=== PATIENT | male | born 1985 | race Caucasian/White ===

== ENCOUNTER 2016-11-07 06:58 | Emergency (ER) | payer SELFPAY ==
[2016-11-07 07:08] VITALS: BP 143/91
--- NOTE | 2016-11-07 07:33 | EDM.PDOC ---
ED HPI EYE COMPLAINT - General Chief Complaint: Eye Problems Stated Complaint: EYE IRRITATION Time Seen by Provider: 11/07/16 07:20 Source: Reports: Patient History Limitations: Reports: No limitations - History of Present Illness INITIAL COMMENTS - FREE TEXT/NARRATIVE: For the past couple of days the patient has had irritation and pain in his left eye. 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 The pain is keeping him up at night. He has some blurred vision. He does not think he got any FB in his left eye. 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: welding arc Associated Symptoms (Eye): Reports: pain, burning - Related Data Allergies/ADRs: Allergies No Known Allergies Allergy (Verified 11/07/16 07:05) Home Meds: Ambulatory Orders Medication Instructions Recorded Confirmed Ciprofloxacin [IJD: Ciloxan 0.3% 1 drop EYELF .EVERY 4 HOURS #5 ml 11/07/16 Ophth Soln] Hydrocodone/Acetaminophen 1 - 2 each PO Q6HR PRN #20 tablet 11/07/16 [Hydrocodon-Acetaminophen 5-325] ED ROS GENERAL - Review of Systems Review Of Systems: See Below Constitutional: Reports: no symptoms HEENT: Reports: Eye pain Respiratory: Reports: no symptoms Cardiovascular: Reports: No symptoms Endocrine: Reports: no symptoms GI/Abdominal: Reports: No symptoms : Reports: no symptoms Musculoskeletal: Reports: no symptoms ED EXAM GENERAL W FULL EYE - Physical Exam Exam: See Below Exam Limited By: No limitations General Appearance: alert, no apparent distress Eye Exam: left eye: foreign body (Metal), bilateral eye: EOMI, PERRL Visual acuity (R) 20/: 20 Visual acuity (L) 20/: 30 Eyelids: left: lid everted for exam, bilateral: normal appearance Conjunctiva & Sclera: left: injected (Slight) Cornea Exam: left: foreign body (Metal with a rust ring) Extraocular Movements: bilateral: intact Pupillary Size: bilateral: 4 mm Pupillary Reaction: bilateral: brisk Anterior Chamber: left: normal appearance Ears: normal external exam Nose: normal inspection Head: atraumatic, normocephalic Respiratory/Chest: no respiratory distress ED EYE w/ Add Procedure - Eye Procedure Alcaine Drops Administered: Yes Eye FB Removal: other (Eye spud) Eye Irrigated w/ Saline (ccs): 10 Progress: I used the eye drill to remove some of the rust ring. Course - Vital Signs Last Recorded V/S: Last Vital Signs Temp 97.5 F 11/07/16 07:05 Pulse 72 11/07/16 07:05 Resp 16 11/07/16 07:05 BP 143/91 H 11/07/16 07:05 Pulse Ox 100 11/07/16 07:05 - Re-Assessments/Exams Free Text/Narrative Re-Assessment/Exam: 11/07/16 07:33 I removed the FB and used the drill to remove some of the rust ring. I will get him on an antibiotic drop and some hydrocodone for pain. Departure - Departure Time of Disposition: 07:35 Disposition: Home, Self-Care 01 Condition: good Clinical Impression: Foreign body of left eye Qualifiers: Encounter type: initial encounter Qualified Code(s): T15.92XA - Foreign body on external eye, part unspecified, left eye, initial encounter Prescriptions: Hydrocodone/Acetaminophen [Hydrocodon-Acetaminophen 5-325] 1 - 2 each PO Q6HR PRN #20 tablet PRN Reason: Pain Ciprofloxacin [IJD: Ciloxan 0.3% Ophth Soln] 1 drop EYELF .EVERY 4 HOURS #5 ml Additional Instructions: Use the eye drops 1 drop every 4 hours while awake for 1 week. Take the hydrocodone as needed for pain. Please return if you are worse or follow up with an pizza baker here in town.
== END 2016-11-07 07:51 | disposition home or self-care (01) ==
LOC: JD.ED 06:58
DX: T15.02XA Foreign body in cornea, left eye, initial encounter (principal); Y93.89 Activity, other specified
CPT/HCPCS: 65220; 65222; 99283-25

== ENCOUNTER 2017-07-28 08:49 | Emergency (ER) | payer BC ==
[2017-07-28 09:03] VITALS: BP 175/98
[2017-07-28] MEDS ORDERED: Diphtheria,Pertussis(Acell),Tetanus Vaccine 0.5 ML SDV IM ONE (09:15)
[2017-07-28] MEDS ORDERED: Acetaminophen/oxyCODONE 325-5 MG Tab PO ONE (09:15)
[2017-07-28] MEDS ORDERED: Ibuprofen 800 MG Tab PO ONE (09:15)
[2017-07-28] MEDS ORDERED: Amoxicillin/Clavulanate K 875-125 MG Tab PO ONE (09:15)
--- NOTE | 2017-07-28 09:24 | EDM.PDOC ---
ED HPI GENERAL MEDICAL PROBLEM - General Chief Complaint: Bite:Animal, Insect Stated Complaint: RIGHT HAND INJURY Time Seen by Provider: 07/28/17 09:01 Source of Information: Reports: Patient History Limitations: Reports: No Limitations - History of Present Illness INITIAL COMMENTS - FREE TEXT/NARRATIVE: The patient is a 31-year-old male with a chief complaint of right hand dog bite. The patient was in a truck with a great Lc dog belongs to his girlfriend. He states the dog was mildly agitated and he was trying to get the dog out of his truck and the dog bit him on the right hand. Patient states it was a provoked bite. Dog is been behaving normally otherwise and is up-to-date on vaccines. Patient complains of a wound to the right hand. Moderate to severe pain. Mild bleeding. No numbness or weakness of the fingers or thumb. No additional complaint. Unsure of when his last tetanus vaccine occurred. Right Hand Pain Score (Numeric/FACES): 8 - Related Data Allergies Allergy/AdvReac Type Severity Reaction Status Date / Time No Known Allergies Allergy Verified 07/28/17 09:03 Home Meds: Home Meds Amoxicillin/Potassium Clav [Augmentin 875-125 Tablet] 1 each PO BID #14 tablet 07/28/17 [Rx] Ibuprofen 800 mg PO TID PRN #30 tablet 07/28/17 [Rx] oxyCODONE HCl/Acetaminophen [Percocet 5-325 mg Tablet] 1 each PO QID PRN #12 tablet 07/28/17 [Rx] Past Medical History - Past Health History Medical/Surgical History: Denies Medical/Surgical History HEENT History: Reports: None Cardiovascular History: Reports: None Respiratory History: Reports: None Gastrointestinal History: Reports: None Genitourinary History: Reports: None Musculoskeletal History: Reports: None Neurological History: Reports: None Psychiatric History: Reports: None Endocrine/Metabolic History: Reports: None Dermatologic History: Reports: None Social & Family History - Tobacco Use Smoking Status *Q: Unknown Ever Smoked Second Hand Smoke Exposure: No ED ROS GENERAL - Review of Systems Review Of Systems: See Below Constitutional: Reports: No Symptoms, Fever Musculoskeletal: Reports: Arm Pain Skin: Reports: Wound Neurological: Denies: Numbness, Weakness ED EXAM, ANIMAL BITE - Physical Exam Exam: See Below Exam Limited By: No Limitations General Appearance: Alert, WD/WN, Mild Distress Eye Exam: Bilateral Eye: Normal Inspection Ears: Normal External Exam Nose: Normal Inspection Throat/Mouth: Normal Inspection, Normal Voice, No Airway Compromise Head: Atraumatic, Normocephalic Neck: Normal Inspection Respiratory/Chest: No Respiratory Distress Cardiovascular: Normal Peripheral Pulses Extremities: Other (RUE: multiple wounds on R hand, including 3 deep appearing puncture wounds to dorsal surface overlying area between distal index and middle finger metacarpals. Moderate soft-tissue swelling. Mild bleeding. No visible FB. No exposed bone or tendon. Small puncture wound on palmar surface at the base of the 3rd metacarpal. Small puncture wound on R middle finger, mid proximal segment. Distal motor/sensation/perfusion intact. ) Psychiatric: Normal Affect, Normal Mood Skin Exam: Warm/Dry, DRY, I, Normal Color, NR Course - Vital Signs Last Recorded V/S: Last Vital Signs Temp 36.9 C 07/28/17 09:00 Pulse 101 H 07/28/17 09:00 Resp 18 07/28/17 09:00 BP 175/98 H 07/28/17 09:00 Pulse Ox 100 07/28/17 09:00 - Orders/Labs/Meds Orders: Active Orders 24 hr Category Date Time Status Vaccines to be Administered [RC] PER UNIT ROUTINE Care 07/28/17 09:16 Active Hand Comp Min 3V Rt [CR] Stat Exams 07/28/17 09:20 Taken Meds: Medications Discontinued Medications Generic Name Dose Route Start Last Admin Trade Name Freq PRN Reason Stop Dose Admin Amoxicillin/Clavulanate Potassium 1 tab 07/28/17 09:15 Augmentin 875 Mg/125 Mg PO 07/28/17 09:16 ONETIME ONE Bacitracin 1 dose 07/28/17 09:40 Bacitracin Oint 1 Gm TOP 07/28/17 09:41 ONETIME ONE Diphtheria/Tetanus/Acell Pertussis 0.5 ml 07/28/17 09:15 Adacel IM 07/28/17 09:16 .ONCE ONE Ibuprofen 800 mg 07/28/17 09:15 Motrin PO 07/28/17 09:16 ONETIME ONE Oxycodone/Acetaminophen 1 tab 07/28/17 09:15 Percocet 325-5 Mg PO 07/28/17 09:16 ONETIME ONE - Re-Assessments/Exams Free Text/Narrative Re-Assessment/Exam: 07/28/17 09:51 Hand x-ray shows no bony abnormality. Soft tissue swelling and wound visualized between index and middle metacarpals. Wound extensively irrigated in the emergency department. Patient was given prophylactic Augmentin. I counseled him at length regarding need for wound check in about 2 days and also risk of infection and need to monitor for symptoms of possible infection. No evidence of bony injury. The patient is neurovascularly intact. However given the depth of wounds and amount of soft tissue swelling encouraged him to follow up with orthopedics if his hand is not healing as expected this week. He will follow up at [facility] for a wound check this week. Departure - Departure Time of Disposition: 09:45 Disposition: Home, Self-Care 01 Clinical Impression: Puncture wound, hand Qualifiers: Encounter type: initial encounter Foreign body presence: without foreign body Laterality: right Qualified Code(s): S61.431A - Puncture wound without foreign body of right hand, initial encounter Dog bite Qualifiers: Encounter type: initial encounter Qualified Code(s): W54.0XXA - Bitten by dog, initial encounter - Discharge Information Prescriptions: Amoxicillin/Potassium Clav [Augmentin 875-125 Tablet] 1 each PO BID #14 tablet Ibuprofen 800 mg PO TID PRN #30 tablet PRN Reason: Pain oxyCODONE HCl/Acetaminophen [Percocet 5-325 mg Tablet] 1 each PO QID PRN #12 tablet PRN Reason: Pain Instructions: Animal Bite, [id number], Puncture Wound, [id number] Referrals: PCP,None [Primary Care Provider] - Forms: ED Department Discharge Additional Instructions: Keep wound clean and dry. Take Augmentin as prescribed to help prevent infection. Follow-up with the walk-in clinic or at your primary care doctor for a wound check in about 2 days. You may call [phone] to schedule with the walk- in clinic. Follow-up sooner or return to the emergency department for any evidence of infection, including worsening pain, swelling, redness, or especially pus under the wound. Take ibuprofen as needed for pain. Take Percocet as needed for severe pain. No driving or operating heavy machinery while taking Percocet as this medication may make you drowsy or confused. Follow -up with orthopedics if you have any residual pain or weakness in your hand within 1-2 weeks. - My Orders Last 24 Hours: My Active Orders 07/28/17 09:16 Vaccines to be Administered [RC] PER UNIT ROUTINE 07/28/17 09:20 Hand Comp Min 3V Rt [CR] Stat - Assessment/Plan Last 24 Hours: My Active Orders 07/28/17 09:16 Vaccines to be Administered [RC] PER UNIT ROUTINE 07/28/17 09:20 Hand Comp Min 3V Rt [CR] Stat
[2017-07-28] MEDS ORDERED: Bacitracin Oint 1 GM U/D Packet TOP ONE (09:40)
--- NOTE | 2017-07-30 11:40 | CR ---
Right hand: Four views of the right hand were obtained. Comparison: No prior hand exam. Soft tissue swelling is identified with soft tissue air. Joint spaces are preserved. No acute fracture, dislocation or other bony abnormality is seen. No opaque foreign object is seen. Impression: 1. Soft tissue swelling and soft tissue air. 2. No acute bony abnormality is identified on right and exam. Diagnostic code #2
== END 2017-07-28 10:14 | disposition home or self-care (01) ==
LOC: JD.ED 08:49
DX: S61.431A Puncture wound without foreign body of right hand, initial encounter (principal); W54.0XXA Bitten by dog, initial encounter; Z23 Encounter for immunization
CPT/HCPCS: 73130; 90471; 90715; 99283; A9270

== ENCOUNTER 2017-07-30 16:35 | Emergency (ER) | payer BC ==
[2017-07-30 16:47] VITALS: BP 146/91
--- NOTE | 2017-07-30 17:27 | EDM.PDOC ---
ED HPI GENERAL MEDICAL PROBLEM - General Chief Complaint: Wound Recheck Stated Complaint: FLUIDS PER [facility] Time Seen by Provider: 07/30/17 16:55 Source of Information: Reports: Patient, Old Records (Saturday ER visit) History Limitations: Reports: No Limitations - History of Present Illness INITIAL COMMENTS - FREE TEXT/NARRATIVE: 31-year-old male presents for evaluation and treatment of a dog bite to the right hand. Patient was bit by his girlfriend sukh Platt on Saturday. It sounds like it was provoked. He has puncture wounds to the dorsal and ventral right hand. He was seen at the ER on Saturday. X rays were done. No acute fractures were identified. He was started on secondary course of Augmentin and given something for pain. Chills and diaphoresis last night. Unsure of fever - did not take temp. No nausea or vomiting. Today the patient presented to the [facility]. The provider there had concerns about red streaking up his arm and the amount of swelling to the right hand. She sent him to us for further management and care. Patient reports that he did have some chills and felt feverish last night. No nausea or vomiting. reportedly the dog's immunizations are up-to-date. He reports that his tetanus was updated on Saturday. Right Hand Pain Score (Numeric/FACES): 2 - Related Data Allergies Allergy/AdvReac Type Severity Reaction Status Date / Time No Known Allergies Allergy Verified 07/30/17 16:47 Home Meds: Home Meds Amoxicillin/Potassium Clav [Augmentin 875-125 Tablet] 1 each PO BID #14 tablet 07/28/17 [Rx] Ibuprofen 800 mg PO TID PRN #30 tablet 07/28/17 [Rx] oxyCODONE HCl/Acetaminophen [Percocet 5-325 mg Tablet] 1 each PO QID PRN #12 tablet 07/28/17 [Rx] Acetaminophen/oxyCODONE [Percocet 325-5 MG] 1 tab PO Q6H PRN #5 tablet 07/30/17 [Rx] Amoxicillin/Potassium Clav [Augmentin 875-125 Tablet] 1 each PO BID #6 tablet [Rx] Past Medical History - Past Health History Medical/Surgical History: Denies Medical/Surgical History HEENT History: Reports: None Cardiovascular History: Reports: None Respiratory History: Reports: None Gastrointestinal History: Reports: None Genitourinary History: Reports: None Musculoskeletal History: Reports: None Neurological History: Reports: None Psychiatric History: Reports: None Endocrine/Metabolic History: Reports: None Dermatologic History: Reports: None Social & Family History - Tobacco Use Smoking Status *Q: Current Every Day Smoker Years of Tobacco use: 18 Packs/Tins Daily: 0.5 Second Hand Smoke Exposure: No - Caffeine Use Caffeine Use: Reports: Coffee - Recreational Drug Use Recreational Drug Use: No ED ROS GENERAL - Review of Systems Review Of Systems: See Below Constitutional: Reports: Chills (last night), Diaphoresis (last night). Denies : Fever (unsure) GI/Abdominal: Denies: Nausea Musculoskeletal: Reports: Hand Pain (right), Joint Swelling (swelling to the right hand ) Skin: Reports: Erythema (small amount of erythema to the right proixmal hand and wrsit; no lymphangitis present), Wound (2 wounds to the dorsal right hand and 1 to the ventral left hand) ED EXAM, SKIN/RASH Exam: See Below Exam Limited By: No Limitations General Appearance: Alert, WD/WN, No Apparent Distress Respiratory/Chest: No Respiratory Distress Cardiovascular: Normal Peripheral Pulses, Regular Rate, Rhythm Peripheral Pulses: 2+: Radial (R) Extremities: Normal Capillary Refill, Joint Swelling (swelling to the right hand ) Neurological: Alert, Normal Cognition Psychiatric: Normal Affect, Normal Mood Skin: Warm, Dry, Normal Color, Erythema (slight erythemat to the ventral right hand and wrist), Other (1.5cm puncture wound to the ventral right hand; 2 wound to the dorsal right hand 1cm in length and 0.5cm in length; no surrounding erythema, no prurlent drainage). No: Increased Warmth Location, Skin: Upper Extremity, Right Course - Vital Signs Last Recorded V/S: Last Vital Signs Temp 36.6 C 07/30/17 16:43 Pulse 99 07/30/17 16:43 Resp 16 07/30/17 16:43 BP 146/91 H 07/30/17 16:43 Pulse Ox 95 07/30/17 16:43 - Re-Assessments/Exams Free Text/Narrative Re-Assessment/Exam: 07/30/17 17:18 I feel the hand is healing well. No additional antibiotics needed at this time. I will extend him to a 10 day course and give him a few additional pain pills if needed. Patient works as a branch assistant. Not elevating the hand much. Encourage him to elevate the hand. Offered splint for immobilization to help with swelling and discomfort. Patient declined. States he would not wear it. Will discharge at this time. Discharge instructions as documented. Departure - Departure Time of Disposition: 17:22 Disposition: Home, Self-Care 01 Condition: Good Clinical Impression: Dog bite, Puncture wound, hand - Discharge Information Prescriptions: Acetaminophen/oxyCODONE [Percocet 325-5 MG] 1 tab PO Q6H PRN #5 tablet PRN Reason: Pain Amoxicillin/Potassium Clav [Augmentin 875-125 Tablet] 1 each PO BID #6 tablet Instructions: Animal Bite, [id number], Puncture Wound, [id number] Referrals: PCP,None [Primary Care Provider] - Forms: ED Department Discharge Additional Instructions: Ice the hand 3-4 times a day for 15-20 minutes. Elevate the hand as much as you able to. Try to elevate above the level of your heart. Continue taking the Augmentin. Take this for 10 days total. An additional prescription has been provided. Continue taking ibuprofen for pain. A 800 milligrams every 6 hours. For pain not relieved by ibuprofen, you may take Percocet 1-2 tabs every 4-[address] operate machinery within 12 hours of taking Percocet. Percocet can be habit-forming, recommended you take as few of these as needed to control your pain. Attempt to keep the hand as immobilized as possible. Follow-up with your primary care provider in 7-10 days for recheck. Please return to the ER if your symptoms change or worsen.
== END 2017-07-30 17:40 | disposition home or self-care (01) ==
LOC: JD.ED 16:35
DX: S61.451A Open bite of right hand, initial encounter (principal); S61.431A Puncture wound without foreign body of right hand, initial encounter; F17.210 Nicotine dependence, cigarettes, uncomplicated; W54.0XXA Bitten by dog, initial encounter
CPT/HCPCS: 99283

== ENCOUNTER 2020-05-06 19:13 | Emergency (ER) | payer BC, OTHER ==
[2020-05-06] MEDS ORDERED: Proparacaine 0.5% Ophth Soln 15 ML Bottle EYERT ONE (20:00)
[2020-05-06] MEDS ORDERED: Fluorescein 1 MG Ophth Strip EYERT ONE (20:52)
--- NOTE | 2020-05-06 21:12 | EDM.PDOC ---
ED HPI GENERAL MEDICAL PROBLEM - General Chief Complaint: Eye Problems Stated Complaint: PIECE OF STEEL IN RIGHT EYE Time Seen by Provider: 05/06/20 20:15 Source of Information: Reports: Patient History Limitations: Reports: No Limitations - History of Present Illness INITIAL COMMENTS - FREE TEXT/NARRATIVE: The patient presents with metal to his right eye. He was grinding earlier today and felt like he got a piece of metal in his right eye. His tetanus is up to date in 2017. He has no vision changes. Onset: Sudden Duration: Hour(s): Location: Reports: Other (right eye) Quality: Reports: Sharp Severity: Mild Improves with: Reports: None Worsens with: Reports: None Associated Symptoms: Reports: No Other Symptoms Right Eye Pain Score (Numeric/FACES): 2 - Related Data Allergies Allergy/AdvReac Type Severity Reaction Status Date / Time No Known Allergies Allergy Verified 07/30/17 16:47 Home Meds: Home Meds Ibuprofen 800 mg PO TID PRN #30 tablet 07/28/17 [Rx] Ciprofloxacin [Ciloxan 0.3% Ophth Soln] 1 drop EYERT Q4H #1 bottle 05/06/20 [Rx] Past Medical History - Past Health History Medical/Surgical History: Denies Medical/Surgical History HEENT History: Reports: None Cardiovascular History: Reports: None Respiratory History: Reports: None Gastrointestinal History: Reports: None Genitourinary History: Reports: None Musculoskeletal History: Reports: None Neurological History: Reports: None Psychiatric History: Reports: None Endocrine/Metabolic History: Reports: None Dermatologic History: Reports: None Social & Family History - Tobacco Use Smoking Status *Q: Current Every Day Smoker Years of Tobacco use: 21 Packs/Tins Daily: 0.5 - Caffeine Use Caffeine Use: Reports: Coffee, Soda - Recreational Drug Use Recreational Drug Use: No ED ROS GENERAL - Review of Systems Review Of Systems: See Below Constitutional: Reports: No Symptoms HEENT: Reports: Eye Pain Respiratory: Reports: No Symptoms Cardiovascular: Reports: No Symptoms Endocrine: Reports: No Symptoms GI/Abdominal: Reports: No Symptoms : Reports: No Symptoms ED EXAM GENERAL W FULL EYE - Physical Exam Exam: See Below Exam Limited By: No Limitations General Appearance: Alert, No Apparent Distress Eye Exam: Bilateral Eye: EOMI, PERRL Eyelids: Right: Lid Everted for Exam, Bilateral: Normal Appearance Conjunctiva & Sclera: Right: Conjunctival Edema Cornea Exam: Right: Corneal Abrasion, Foreign Body Extraocular Movements: Bilateral: Intact Course - Vital Signs Last Recorded V/S: Last Vital Signs Temp 99.3 F 05/06/20 20:07 Pulse 99 05/06/20 20:07 Resp 20 05/06/20 20:07 BP 154/106 H 05/06/20 20:07 Pulse Ox 97 05/06/20 20:07 - Orders/Labs/Meds Meds: Medications Discontinued Medications Generic Name Dose Route Start Last Admin Trade Name Miladys PRVenita Reason Stop Dose Admin Fluorescein Sodium 1 mg 05/06/20 20:52 05/06/20 20:58 Ful-Windy EYERT 05/06/20 20:53 1 mg ONETIME ONE Administration Proparacaine HCl 2 ml 05/06/20 20:00 05/06/20 20:10 Proparacaine 0.5% Ophth Soln EYERT 05/06/20 20:01 2 ml ONETIME ONE Administration - Re-Assessments/Exams Free Text/Narrative Re-Assessment/Exam: 05/06/20 21:09 I used proparicaine and fluores and I removed a metal FB with an eye spud. There were no complications. I will get him on some cipro drops. Departure - Departure Time of Disposition: 21:10 Disposition: Home, Self-Care 01 Condition: Good Clinical Impression: Corneal abrasion Qualifiers: Encounter type: initial encounter Laterality: right Qualified Code(s): S05.01XA - Injury of conjunctiva and corneal abrasion without foreign body, right eye, initial encounter Corneal FB (foreign body) Qualifiers: Encounter type: initial encounter Laterality: right Qualified Code(s): T15.01XA - Foreign body in cornea, right eye, initial encounter - Discharge Information *PRESCRIPTION DRUG MONITORING PROGRAM REVIEWED*: Not Applicable *COPY OF PRESCRIPTION DRUG MONITORING REPORT IN PATIENT GEOVANNY: Not Applicable Prescriptions: Ciprofloxacin [Ciloxan 0.3% Ophth Soln] 1 drop EYERT Q4H #1 bottle Referrals: PCP,None [Primary Care Provider] - Additional Instructions: Take tylenol or motrin for pain. Use the cipro drops 1 drop in the right eye every 4 hours while awake for 1 week. Please return if you are worse. Sepsis Event Note (ED) - Evaluation Sepsis Screening Result: No Definite Risk - Focused Exam Vital Signs: Vital Signs Temp Pulse Resp BP Pulse Ox 05/06/20 20:07 99.3 F 99 20 154/106 H 97
[2020-05-06 21:23] VITALS: BP 132/92; PULSE 88
== END 2020-05-06 21:22 | disposition home or self-care (01) ==
LOC: JD.ED 19:13
DX: T15.01XA Foreign body in cornea, right eye, initial encounter (principal); F17.210 Nicotine dependence, cigarettes, uncomplicated
CPT/HCPCS: 65220; 99283-25